=== PATIENT | male | born 1995 | race African-American/Black ===

== ENCOUNTER 2020-03-26 12:22 | Emergency (ER) | payer SELFPAY ==
[~2020-03-26] VITALS: Ht 182.9 cm; Wt 75.0 kg
[2020-03-26] MEDS ORDERED: BACITRACIN ZINC OINT UDPKT TOP ONE (12:45)
[2020-03-26] MEDS ORDERED: CEPHALEXIN 250MG CAPSULE PO ONE (12:45)
[2020-03-26 12:50] VITALS: BP 111/71
== END 2020-03-26 12:50 | disposition home or self-care (01) ==
LOC: ER 12:22
DX: S91.331A Puncture wound without foreign body, right foot, initial encounter (principal); S90.811A Abrasion, right foot, initial encounter; W25.XXXA Contact with sharp glass, initial encounter; Y93.89 Activity, other specified; Y92.018 Other place in single-family (private) house as the place of occurrence of the external cause
CPT/HCPCS: 99283